=== PATIENT | female | born 1975 | race Caucasian/White ===

== ENCOUNTER 2022-10-07 06:56 | Emergency (ER) | payer OTHER ==
[~2022-10-07] VITALS: Ht 162.6 cm; Wt 72.6 kg
[2022-10-07 07:33] VITALS: BP 156/94
[2022-10-07] MEDS ORDERED: SULF1TAB48 PO (07:35)
--- NOTE | 2022-10-07 07:35 | NUR ---
DR GRIMES SEEN PT AT BEDSIDE FOR EVAL
--- NOTE | 2022-10-07 07:50 | NUR ---
Patient discharged to home in stable condition. Written and verbal after care instructions given. Patient verbalizes understanding of instruction.
== END 2022-10-07 07:51 | disposition home or self-care (01) ==
LOC: ER 06:56
DX: L03.116 Cellulitis of left lower limb (principal); E11.9 Type 2 diabetes mellitus without complications; Z88.8 Allergy status to other drugs, medicaments and biological substances; Z79.899 Other long term (current) drug therapy
CPT/HCPCS: 82962-TC